=== PATIENT | female | born 1990 | race Asian ===

== ENCOUNTER 2024-01-15 15:59 | Emergency (ER) | payer OTHER ==
[~2024-01-15] VITALS: Ht 154.9 cm; Wt 53.5 kg
[2024-01-15 16:12] VITALS: BP 106/71; TEMP 98.2
[2024-01-15 17:02] VITALS: O2SAT 99
== END 2024-01-15 17:03 | disposition home or self-care (01) ==
LOC: ER 16:37
DX: S66.912A Strain of unspecified muscle, fascia and tendon at wrist and hand level, left hand, initial encounter (principal); S66.911A Strain of unspecified muscle, fascia and tendon at wrist and hand level, right hand, initial encounter; S80.02XA Contusion of left knee, initial encounter; S80.01XA Contusion of right knee, initial encounter; Z88.2 Allergy status to sulfonamides; W18.30XA Fall on same level, unspecified, initial encounter; Y93.89 Activity, other specified; Y92.89 Other specified places as the place of occurrence of the external cause; Y99.8 Other external cause status